=== PATIENT | female | born 1970 | race Caucasian/White ===

== ENCOUNTER 2018-05-19 00:17 | Emergency (ER) | payer MEDICAID ==
[~2018-05-19] VITALS: Ht 185.4 cm; Wt 88.6 kg
[2018-05-19] MEDS ORDERED: normal saline 1000ML IV soln IVB ONE (00:45)
[2018-05-19] MEDS ORDERED: ibuprofen tablet 400 MG TABLET PO ONE (00:45)
[2018-05-19] MEDS ORDERED: ondansetron/PF 4mg/2ml inj IV ONE (01:15)
[2018-05-19] MEDS ORDERED: ketorolac tromethamine 15mg/ml inj. IV ONE (01:15)
[2018-05-19 01:38] LABS: CLARITY,URINE BLOODY (Clear); COLOR,URINE RED (Yellow); UA COLLECTION TYPE CLN CATCH MIDSTREAM
[2018-05-19 01:43] LABS: URINE AMPHETAMINE SCREEN POSITIVE (Neg); URINE BARBITUATE SCREEN NEGATIVE (Neg); URINE BENZODIAZEPINES SCREEN NEGATIVE (Neg); URINE CANNABINOID SCREEN POSITIVE (Neg); URINE COCAINE SCREEN NEGATIVE (Neg); URINE METHADONE SCREEN NEGATIVE (Neg); URINE OPIATE SCREEN NEGATIVE (Neg); URINE PHENCYCLIDINE SCREEN NEGATIVE (Neg)
[2018-05-19 01:45] LABS: ALANINE AMINOTRANSFERASE 17 U/L (12-78); ALBUMIN 3.7 G/DL (3.4-5.0); ALBUMIN/GLOBULIN RATIO 0.9 (1.1-1.5); ALKALINE PHOSPHATASE 55 IU/L (46-116); ANION GAP 8 (8-16); ASPARTATE AMINO TRANSFERASE 29 U/L (10-37); BILIRUBIN,TOTAL 0.4 MG/DL (0.1-1.0); BLOOD UREA NITROGEN 19 MG/DL (7-18); BUN/CREATININE RATIO 12.9 (6.6-38.0); CALCIUM 8.8 MG/DL (8.5-10.1); CHLORIDE 102 MMOL/L (99-107); CREATININE 1.47 MG/DL (0.40-0.90); GLUCOSE 94 MG/DL (70-104); LIPASE 141 U/L (73-393); POTASSIUM 3.9 MMOL/L (3.5-5.1); SODIUM 138 MMOL/L (135-145); TOTAL PROTEIN 7.6 G/DL (6.4-8.2); eGFR 38 ML/MIN
[2018-05-19 02:15] LABS: BASOPHILS # (AUTO) 0.1 X10'3 (0-0.2); BASOPHILS % (AUTO) 0.9 % (0-1); EOSINOPHILS # (AUTO) 0.4 X10'3 (0-0.9); HEMATOCRIT 31.5 % (35.0-45.0); HEMOGLOBIN 10.2 g/dl (12.0-16.0); LYMPHOCYTES # (AUTO) 1.1 X10'3 (1.1-4.8); LYMPHOCYTES % (AUTO) 17.8 % (21-51); MEAN CORPUSCULAR HEMOGLOBIN 29.1 PG (27.0-31.0); MEAN CORPUSCULAR HGB CONC 32.4 % (33.0-36.5); MEAN CORPUSCULAR VOLUME 89.7 FL (78-98); MEAN PLATELET VOLUME 8.1 FL (7.4-10.4); MONOCYTES # (AUTO) 0.3 X10'3 (0-0.9); MONOCYTES % (AUTO) 4.8 % (2-12); NEUTROPHILS # (AUTO) 4.3 X10'3 (1.8-7.7); NEUTROPHILS % (AUTO) 69.5 % (42-75); PLATELET COUNT 276 X10'3 (140-440); RED BLOOD COUNT 3.51 X10'6 (4.20-5.60); RED CELL DISTRIBUTION WIDTH 16.3 % (11.5-14.5); WHITE BLOOD COUNT 6.3 X10'3 (4.5-11.0)
[2018-05-19 02:15] LABS: BACTERIA,URINE NONE SEEN /HPF (Neg); MUCUS STRANDS NONE SEEN /LPF (Neg); RBC,URINE TNTC /HPF (0-2); SQUAMOUS EPITHELIAL CELL,UR FEW /LPF (FEW); WBC,URINE 0-4 /HPF (0-4)
[2018-05-19] MEDS ORDERED: MEDR10TA PO (02:34)
[2018-05-19 02:50] VITALS: BP 130/104
== END 2018-05-19 02:51 | disposition home or self-care (01) ==
LOC: ER 00:18
DX: N93.9 Abnormal uterine and vaginal bleeding, unspecified (principal); N28.1 Cyst of kidney, acquired; D25.9 Leiomyoma of uterus, unspecified; F15.10 Other stimulant abuse, uncomplicated; F12.90 Cannabis use, unspecified, uncomplicated; J44.9 Chronic obstructive pulmonary disease, unspecified; I50.9 Heart failure, unspecified; Z90.49 Acquired absence of other specified parts of digestive tract; Z88.8 Allergy status to other drugs, medicaments and biological substances; Z79.899 Other long term (current) drug therapy; Z59.0 Homelessness
CPT/HCPCS: 36415; 74176; 80053; 80305; 81001; 83690; 85025; 96374; 96375; 99285; J1885; J2405; J7030

== ENCOUNTER 2018-06-14 11:53 | Outpatient (CLI) | payer MEDICAID ==
[~2018-06-14 11:53] MED LIST: MEDR10TA PO
== END 2018-06-14 23:59 | disposition home or self-care (01) ==
LOC: LAB 11:53
PROVIDERS: ATTEND Family Medicine
DX: M25.861 Other specified joint disorders, right knee (principal); M25.561 Pain in right knee
CPT/HCPCS: 73564

== ENCOUNTER 2018-06-15 16:34 | Emergency (ER) | payer MEDICAID ==
[~2018-06-15] VITALS: Ht 185.4 cm; Wt 88.6 kg
[2018-06-15 16:39] VITALS: BP 126/83
== END 2018-06-15 16:59 | disposition home or self-care (01) ==
LOC: ER 16:36
DX: Z02.89 Encounter for other administrative examinations (principal); M54.2 Cervicalgia; I95.9 Hypotension, unspecified; I50.9 Heart failure, unspecified; J44.9 Chronic obstructive pulmonary disease, unspecified; Z90.49 Acquired absence of other specified parts of digestive tract; Z98.51 Tubal ligation status; Z98.890 Other specified postprocedural states; F12.90 Cannabis use, unspecified, uncomplicated; F15.90 Other stimulant use, unspecified, uncomplicated; Z59.0 Homelessness; Z91.048 Other nonmedicinal substance allergy status; Z79.899 Other long term (current) drug therapy
CPT/HCPCS: 99283

== ENCOUNTER 2019-02-04 11:04 | Emergency (ER) | payer SELFPAY ==
[~2019-02-04] VITALS: Ht 185.4 cm; Wt 90.0 kg
[~2019-02-04 11:04] MED LIST changes: +IBUP-1986 PO
--- NOTE | 2019-02-04 12:11 | NUR ---
TICKET DISPATCHER WILL BE HERE SOON
[2019-02-04 13:22] VITALS: BP 131/66
[2019-02-04] MEDS ORDERED: CEPH250T PO (13:46)
[2019-02-04] MEDS ORDERED: LEVO150T8 PO (13:46)
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
== END 2019-02-04 14:39 | disposition home or self-care (01) ==
LOC: ER 11:04
DX: S80.212A Abrasion, left knee, initial encounter (principal); G89.29 Other chronic pain; M25.561 Pain in right knee; J44.9 Chronic obstructive pulmonary disease, unspecified; I50.9 Heart failure, unspecified; F12.90 Cannabis use, unspecified, uncomplicated; F15.90 Other stimulant use, unspecified, uncomplicated; Z59.0 Homelessness; Z90.49 Acquired absence of other specified parts of digestive tract; Z98.51 Tubal ligation status; Z98.890 Other specified postprocedural states; Z79.899 Other long term (current) drug therapy; Z79.82 Long term (current) use of aspirin; Y04.0XXA Assault by unarmed brawl or fight, initial encounter; Y93.89 Activity, other specified; Y92.89 Other specified places as the place of occurrence of the external cause; Y99.9 Unspecified external cause status
CPT/HCPCS: 29505; 73560; 93971; 99284

== ENCOUNTER 2019-02-13 21:00 | Emergency (ER) | payer MEDICAID, OTHER ==
[~2019-02-13] VITALS: Ht 185.4 cm; Wt 90.0 kg
[~2019-02-13 21:00] MED LIST changes: +CEPH250T PO; +LEVO150T8 PO
[2019-02-14] MEDS ORDERED: CYCL-1 PO (00:27)
[2019-02-14] MEDS ORDERED: cyclobenzaprine 10mg tablet PO ONE (00:30)
[2019-02-14] MEDS ORDERED: HYDROcodone/acetaminophen 5mg/325mg tablet PO ONE (00:30)
[2019-02-14 01:10] VITALS: BP 120/78
== END 2019-02-14 01:12 | disposition home or self-care (01) ==
LOC: ER 21:01
DX: M25.561 Pain in right knee (principal); J44.9 Chronic obstructive pulmonary disease, unspecified; G89.29 Other chronic pain; I50.9 Heart failure, unspecified; F12.90 Cannabis use, unspecified, uncomplicated; F15.90 Other stimulant use, unspecified, uncomplicated; Z88.8 Allergy status to other drugs, medicaments and biological substances; Z79.899 Other long term (current) drug therapy; Z59.0 Homelessness
CPT/HCPCS: 99284

== ENCOUNTER 2019-04-13 16:05 | Emergency (ER) | payer MEDICAID ==
[~2019-04-13] VITALS: Ht 185.4 cm; Wt 97.7 kg
[~2019-04-13 16:05] MED LIST changes: -CEPH250T PO; +FLUO20CA39 PO; +GABA-532 PO; -IBUP-1986 PO; -MEDR10TA PO; +RANI150C4 PO; +TRAM50TA2 PO
--- NOTE | 2019-04-13 17:30 | NUR ---
SPOKE WITH MD ABOUT PATIENTS RECENT DIAGNOSIS
[2019-04-13] MEDS ORDERED: ASPI-41 PO (17:39)
[2019-04-13] MEDS ORDERED: HYDR-4383 PO (17:39)
[2019-04-13] MEDS ORDERED: HYDROcodone/acetaminophen 10/325mg tab PO ONE (17:40)
[2019-04-13 17:51] VITALS: BP 125/55
== END 2019-04-13 17:53 | disposition home or self-care (01) ==
LOC: ER 16:06
DX: G43.909 Migraine, unspecified, not intractable, without status migrainosus (principal); G89.29 Other chronic pain; I50.9 Heart failure, unspecified; J44.9 Chronic obstructive pulmonary disease, unspecified; Z59.0 Homelessness; Z90.49 Acquired absence of other specified parts of digestive tract; Z98.51 Tubal ligation status; Z79.899 Other long term (current) drug therapy; Z79.82 Long term (current) use of aspirin
CPT/HCPCS: 99283

== ENCOUNTER 2019-05-18 21:01 | Emergency (ER) | payer MEDICAID ==
[~2019-05-18] VITALS: Ht 185.4 cm; Wt 93.0 kg
[~2019-05-18 21:01] MED LIST changes: +HYDR-4383 PO
[2019-05-18 21:43] LABS: BASOPHILS # (AUTO) 0.1 X10'3 (0-0.2); BASOPHILS % (AUTO) 0.9 % (0-1); EOSINOPHILS # (AUTO) 0.8 X10'3 (0-0.9); HEMOGLOBIN 13.3 g/dl (12.0-16.0); LYMPHOCYTES # (AUTO) 2.2 X10'3 (1.1-4.8); LYMPHOCYTES % (AUTO) 29.2 % (21-51); MEAN CORPUSCULAR HEMOGLOBIN 30.5 PG (27.0-31.0); MEAN CORPUSCULAR HGB CONC 32.5 g/dL (33.0-36.5); MEAN CORPUSCULAR VOLUME 93.9 FL (78-98); MONOCYTES # (AUTO) 0.4 X10'3 (0-0.9); MONOCYTES % (AUTO) 5.7 % (2-12); NEUTROPHILS % (AUTO) 53.2 % (42-75); PLATELET COUNT 252 X10'3 (140-440); RED BLOOD COUNT 4.36 X10'6 (4.20-5.60); RED CELL DISTRIBUTION WIDTH 15.2 % (11.5-14.5); WHITE BLOOD COUNT 7.6 X10'3 (4.5-11.0)
[2019-05-18 21:52] LABS: ALANINE AMINOTRANSFERASE 30 U/L (12-78); ALBUMIN 4.2 G/DL (3.4-5.0); ALBUMIN/GLOBULIN RATIO 1.1 (1.1-1.5); ALKALINE PHOSPHATASE 78 IU/L (46-116); ANION GAP 9 (8-16); ASPARTATE AMINO TRANSFERASE 36 U/L (10-37); BILIRUBIN,TOTAL 0.4 MG/DL (0.1-1.0); BLOOD UREA NITROGEN 16 MG/DL (7-18); BUN/CREATININE RATIO 10.5 (6.6-38.0); CALCIUM 9.5 MG/DL (8.5-10.1); CHLORIDE 106 MMOL/L (99-107); CREATININE 1.53 MG/DL (0.40-0.90); GLUCOSE 103 MG/DL (70-104); PARTIAL THROMBOPLASTIN TIME 30 SECONDS (22-32); SODIUM 142 MMOL/L (135-145); TOTAL CARBON DIOXIDE 26.7 MMOL/L (24-32); TOTAL PROTEIN 7.9 G/DL (6.4-8.2); eGFR 36 ML/MIN
[2019-05-18] MEDS ORDERED: ipratropium/albuterol 3ml nebule NEB ONE (22:00)
[2019-05-18] MEDS ORDERED: methylPREDNISolone sod succ 125mg/2ml vial IV ONE (22:00)
[2019-05-18] MEDS ORDERED: PRED20TA PO (23:05)
[2019-05-18] MEDS ORDERED: DOXY100C43 PO (23:05)
[2019-05-18 23:06] VITALS: BP 142/80
== END 2019-05-18 23:26 | disposition home or self-care (01) ==
LOC: ER 21:02
DX: J44.1 Chronic obstructive pulmonary disease with (acute) exacerbation (principal); J32.9 Chronic sinusitis, unspecified; G43.909 Migraine, unspecified, not intractable, without status migrainosus; I50.9 Heart failure, unspecified; G89.29 Other chronic pain; F32.9 Major depressive disorder, single episode, unspecified; F17.210 Nicotine dependence, cigarettes, uncomplicated; Z90.49 Acquired absence of other specified parts of digestive tract; Z98.51 Tubal ligation status; Z59.0 Homelessness; Z88.8 Allergy status to other drugs, medicaments and biological substances; Z79.899 Other long term (current) drug therapy
CPT/HCPCS: 36415; 71045; 80053; 83880; 84484; 85025; 85610; 85730; 93005; 94640; 94760; 96374; 99284; J2930

== ENCOUNTER 2019-09-24 09:31 | Emergency (ER) | payer MEDICAID ==
[~2019-09-24] VITALS: Ht 185.4 cm; Wt 140.9 kg
[2019-09-24 11:01] LABS: ALANINE AMINOTRANSFERASE 19 U/L (12-78); ALBUMIN 3.5 G/DL (3.4-5.0); ALBUMIN/GLOBULIN RATIO 0.9 (1.1-1.5); ALKALINE PHOSPHATASE 79 IU/L (46-116); ANION GAP 6 (8-16); ASPARTATE AMINO TRANSFERASE 22 U/L (10-37); BILIRUBIN,TOTAL 0.5 MG/DL (0.1-1.0); BLOOD UREA NITROGEN 9 MG/DL (7-18); BUN/CREATININE RATIO 8.3 (6.6-38.0); CALCIUM 9.2 MG/DL (8.5-10.1); CHLORIDE 103 MMOL/L (99-107); CREATININE 1.08 MG/DL (0.40-0.90); GLUCOSE 85 MG/DL (70-104); POTASSIUM 3.8 MMOL/L (3.5-5.1); SODIUM 137 MMOL/L (135-145); TOTAL CARBON DIOXIDE 28.5 MMOL/L (24-32); TOTAL PROTEIN 7.3 G/DL (6.4-8.2); eGFR 53 ML/MIN
[2019-09-24 12:54] VITALS: BP 148/93
== END 2019-09-24 12:56 | disposition home or self-care (01) ==
LOC: ER 09:32
DX: R20.0 Anesthesia of skin (principal); E11.42 Type 2 diabetes mellitus with diabetic polyneuropathy; G43.909 Migraine, unspecified, not intractable, without status migrainosus; I50.9 Heart failure, unspecified; J44.9 Chronic obstructive pulmonary disease, unspecified; G89.29 Other chronic pain; F32.9 Major depressive disorder, single episode, unspecified; F10.99 Alcohol use, unspecified with unspecified alcohol-induced disorder; Z90.49 Acquired absence of other specified parts of digestive tract; Z98.51 Tubal ligation status; Z88.8 Allergy status to other drugs, medicaments and biological substances; Z79.899 Other long term (current) drug therapy; Z98.890 Other specified postprocedural states; Z59.0 Homelessness; Y90.9 Presence of alcohol in blood, level not specified
CPT/HCPCS: 36415; 80053; 99283

== ENCOUNTER 2019-10-01 11:49 | Emergency (ER) | payer MEDICAID ==
[~2019-10-01] VITALS: Ht 185.4 cm; Wt 135.0 kg
[2019-10-01 11:52] VITALS: BP 132/85
[2019-10-01] MEDS ORDERED: ipratropium/albuterol 3ml nebule NEB ONE (12:30)
[2019-10-01] MEDS ORDERED: predniSONE 20 mg tablet PO ONE (12:30)
[2019-10-01] MEDS ORDERED: benzonatate 100mg capsule PO ONE (12:45)
--- NOTE | 2019-10-01 12:55 | NUR ---
Lab at bedside.
[2019-10-01 13:19] LABS: BASOPHILS # (AUTO) 0.1 X10'3 (0-0.2); BASOPHILS % (AUTO) 1.1 % (0-1); EOSINOPHILS # (AUTO) 0.8 X10'3 (0-0.9); EOSINOPHILS % (AUTO) 11.2 % (0-6); HEMATOCRIT 37.5 % (35.0-45.0); HEMOGLOBIN 12.5 g/dl (12.0-16.0); LYMPHOCYTES % (AUTO) 13.5 % (21-51); MEAN CORPUSCULAR HEMOGLOBIN 31.9 PG (27.0-31.0); MEAN CORPUSCULAR HGB CONC 33.4 g/dL (33.0-36.5); MEAN CORPUSCULAR VOLUME 95.6 FL (78-98); MONOCYTES # (AUTO) 0.5 X10'3 (0-0.9); MONOCYTES % (AUTO) 7.6 % (2-12); NEUTROPHILS # (AUTO) 4.7 X10'3 (1.8-7.7); NEUTROPHILS % (AUTO) 66.6 % (42-75); PLATELET COUNT 261 X10'3 (140-440); RED BLOOD COUNT 3.93 X10'6 (4.20-5.60); WHITE BLOOD COUNT 7.1 X10'3 (4.5-11.0)
--- NOTE | 2019-10-01 13:42 | NUR ---
Respiratory at bedside
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
--- NOTE | 2019-10-01 14:05 | NUR ---
Provider notified and and spoke with patient. CT ordered.
[2019-10-01] MEDS ORDERED: DOXY-327 PO (14:07)
[2019-10-01] MEDS ORDERED: BENZ-16 PO (14:07)
[2019-10-01] MEDS ORDERED: PRED20TA PO (14:08)
== END 2019-10-01 15:38 | disposition home or self-care (01) ==
LOC: ER 11:49
DX: J44.1 Chronic obstructive pulmonary disease with (acute) exacerbation (principal); J32.9 Chronic sinusitis, unspecified; G43.909 Migraine, unspecified, not intractable, without status migrainosus; G89.29 Other chronic pain; I50.9 Heart failure, unspecified; Z90.49 Acquired absence of other specified parts of digestive tract; Z98.51 Tubal ligation status; Z98.890 Other specified postprocedural states; Z59.0 Homelessness; Z79.899 Other long term (current) drug therapy
CPT/HCPCS: 36415; 70450; 71045; 85025; 87502; 87503; 94640; 99284; J7512; 94760

== ENCOUNTER 2019-10-05 17:22 | Emergency (ER) | payer MEDICAID, OTHER ==
[~2019-10-05] VITALS: Ht 185.4 cm; Wt 115.0 kg
[~2019-10-05 17:22] MED LIST changes: +BENZ-16 PO; +DOXY-327 PO; +PRED20TA PO
--- NOTE | 2019-10-05 18:31 | NUR ---
OFFICER ELIUD Helton, HERE SPEAKING WITH PT.
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
--- NOTE | 2019-10-05 18:48 | NUR ---
CHARGE NURSE NOTIFIED THAT OFFICER HAS REQUESTED
--- NOTE | 2019-10-05 19:29 | NUR ---
ADVOCATE FROM [facility] IS HERE TALKING WITH THE PATIENT.
[2019-10-05] MEDS ORDERED: metroNIDAZOLE 500mg tablet PO ONE (22:35)
[2019-10-05] MEDS ORDERED: CefTRIAXone 250MG IM Kit w/LIDOcaine IM ONE (22:35)
[2019-10-05] MEDS ORDERED: azithromycin 250mg tablet PO ONE (22:35)
[2019-10-06 00:11] LABS: URINE HCG NEGATIVE (NEG)
--- NOTE | 2019-10-06 00:15 | NUR ---
PHONED [facility] FOR TRANSPORTATION TO [facility] ON [address] . ETA FOR CAB IS [phone]
[2019-10-06 00:19] LABS: CLARITY,URINE CLOUDY (Clear); COLOR,URINE RED (Yellow); GLUCOSE, URINE NEGATIVE (Neg); KETONES,URINE NEGATIVE (Neg); LEUKOCYTE ESTERASE ,URINE NEGATIVE (Neg); NITRITES, URINE NEGATIVE (Neg); OCCULT BLOOD,URINE LARGE (Neg); PH,URINE 6.5 (4.8-8.0); PROTEIN,URINE TRACE mg/dl (Neg)
[2019-10-06 00:20] LABS: UA COLLECTION TYPE CLN CATCH MIDSTREAM
[2019-10-06 00:24] LABS: BACTERIA,URINE NONE SEEN /HPF (Neg); MUCUS STRANDS NONE SEEN /LPF (Neg); RBC,URINE TNTC /HPF (0-2); SQUAMOUS EPITHELIAL CELL,UR MANY /LPF (FEW); WBC,URINE NONE SEEN /HPF (0-4)
--- NOTE | 2019-10-06 02:42 | NUR ---
Patient seen for SART exam, patient accepted STD prevention but declined the morning after pill. Patient has one safe place advocate at the bedside " Destini". Patient verbalized understanding of follow up/ discharge instructions. [facility] and [facility] cab was called for patinet. Patient was offered food, given new shirts and underwear.
[2019-10-06 02:44] VITALS: BP 151/93
== END 2019-10-06 01:00 | disposition home or self-care (01) ==
LOC: ER 17:23
DX: N93.9 Abnormal uterine and vaginal bleeding, unspecified (principal); M54.5 Low back pain; G43.909 Migraine, unspecified, not intractable, without status migrainosus; J44.9 Chronic obstructive pulmonary disease, unspecified; G89.29 Other chronic pain; F32.9 Major depressive disorder, single episode, unspecified; I50.9 Heart failure, unspecified; F10.99 Alcohol use, unspecified with unspecified alcohol-induced disorder; Z90.49 Acquired absence of other specified parts of digestive tract; Z98.51 Tubal ligation status; Z88.8 Allergy status to other drugs, medicaments and biological substances; Z79.899 Other long term (current) drug therapy; Y90.9 Presence of alcohol in blood, level not specified
CPT/HCPCS: 81001; 81025; 96372; 99284

== ENCOUNTER 2019-11-07 09:17 | Emergency (ER) | payer MEDICAID ==
[~2019-11-07] VITALS: Ht 167.6 cm; Wt 110.0 kg
[~2019-11-07 09:17] MED LIST changes: -BENZ-16 PO; -PRED20TA PO
[2019-11-07] MEDS ORDERED: PERM60CR4 TOP (09:38)
[2019-11-07] MEDS ORDERED: FLUO20CA39 PO (09:38)
[2019-11-07] MEDS ORDERED: LEVO150T8 PO (09:38)
== END 2019-11-07 09:46 | disposition home or self-care (01) ==
LOC: ER 09:18
DX: B86 Scabies (principal); Z76.0 Encounter for issue of repeat prescription; L53.8 Other specified erythematous conditions; G43.909 Migraine, unspecified, not intractable, without status migrainosus; J44.9 Chronic obstructive pulmonary disease, unspecified; G89.29 Other chronic pain; I50.9 Heart failure, unspecified; Z98.890 Other specified postprocedural states; Z90.49 Acquired absence of other specified parts of digestive tract; Z98.51 Tubal ligation status; Z59.0 Homelessness; Z79.899 Other long term (current) drug therapy
CPT/HCPCS: 99283

== ENCOUNTER 2019-11-29 07:40 | Emergency (ER) | payer MEDICAID ==
[~2019-11-29] VITALS: Ht 185.4 cm; Wt 87.0 kg
[~2019-11-29 07:40] MED LIST changes: +PERM60CR4 TOP
[2019-11-29 09:44] VITALS: BP 127/68
== END 2019-11-29 09:48 | disposition home or self-care (01) ==
LOC: ER 07:41
DX: M25.561 Pain in right knee (principal); I50.9 Heart failure, unspecified; J44.9 Chronic obstructive pulmonary disease, unspecified; G89.29 Other chronic pain; F32.9 Major depressive disorder, single episode, unspecified; F12.90 Cannabis use, unspecified, uncomplicated; F17.210 Nicotine dependence, cigarettes, uncomplicated; Z90.49 Acquired absence of other specified parts of digestive tract; Z98.51 Tubal ligation status; Z98.890 Other specified postprocedural states; Z59.0 Homelessness; Z91.048 Other nonmedicinal substance allergy status; Z79.899 Other long term (current) drug therapy; Y04.2XXA Assault by strike against or bumped into by another person, initial encounter; X50.1XXA Overexertion from prolonged static or awkward postures, initial encounter; Y93.89 Activity, other specified; Y92.89 Other specified places as the place of occurrence of the external cause; Y99.8 Other external cause status
CPT/HCPCS: 73564; 99284

== ENCOUNTER 2019-12-15 07:32 | Emergency (ER) | payer MEDICAID ==
[~2019-12-15] VITALS: Ht 185.4 cm; Wt 90.0 kg
[2019-12-15] MEDS ORDERED: iohexol 350MG/ML 100ml bottle IV ONE (08:12)
[2019-12-15] MEDS ORDERED: diphenhydrAMINE 25mg capsule PO ONE (10:00)
[2019-12-15] MEDS ORDERED: ketorolac trometh inj. 60 MG/2 ML VIAL IM ONE (10:00)
[2019-12-15] MEDS ORDERED: proCHLORperazine 10mg tablet PO ONE (10:00)
[2019-12-15 10:34] VITALS: BP 124/83
== END 2019-12-15 10:36 | disposition home or self-care (01) ==
LOC: ER 07:33
DX: G43.909 Migraine, unspecified, not intractable, without status migrainosus (principal); M25.561 Pain in right knee; G89.29 Other chronic pain; I50.9 Heart failure, unspecified; J44.9 Chronic obstructive pulmonary disease, unspecified; F32.9 Major depressive disorder, single episode, unspecified; Z90.49 Acquired absence of other specified parts of digestive tract; Z98.51 Tubal ligation status; Z98.890 Other specified postprocedural states; Z88.8 Allergy status to other drugs, medicaments and biological substances; Z79.899 Other long term (current) drug therapy
CPT/HCPCS: 70496; 96372; 99284; J1885; Q0163; Q9967; Q0164

== ENCOUNTER 2020-01-11 20:19 | Emergency (ER) | payer MEDICAID ==
[~2020-01-11] VITALS: Ht 185.4 cm; Wt 127.4 kg
--- NOTE | 2020-01-11 20:33 | NUR ---
AWAITED FOR PATIENT TO BE PLACED IN SYSTEM TO DOCUMENT. ARRIVED VIA EMS. COOPERATIVE. WELL NOURISHED, COOPERATIVE CLOTHES DIRTY WEARING SOCKES WITH PLANT DEBRIS STUCK TO BOTTOM OF SOCKS. HANDS DARKENED FINGER NAILS WITH DIRT UNDER ALL 10 DIGITS CALLUSOUSES NOTED TO PALM OF HANDS. NOSE SWOLLEN DRIED BLOOD TO BOTH NOSTRILS, OD EYES WITH DRY BLOOD UNDERNEATH RIGHT CANTHUS. FACE CLEANED OF ALL DRIED BLOOD. AWAITING TO BE SEEN BY A PROVIDER
[2020-01-11] MEDS ORDERED: CLOP75TA35 PO (20:38)
--- NOTE | 2020-01-11 22:13 | NUR ---
TO CT SCAN
[2020-01-11] MEDS ORDERED: ondansetron 4mg rapidly disintigrating tab PO ONE (22:50)
[2020-01-11] MEDS ORDERED: HYDROcodone/acetaminophen 5mg/325mg tablet PO ONE (22:50)
[2020-01-11 23:54] VITALS: BP 110/56
== END 2020-01-11 23:55 | disposition home or self-care (01) ==
LOC: ER 20:19
DX: S06.0X0A Concussion without loss of consciousness, initial encounter (principal); S02.2XXA Fracture of nasal bones, initial encounter for closed fracture; S50.312A Abrasion of left elbow, initial encounter; R60.9 Edema, unspecified; I50.9 Heart failure, unspecified; J44.9 Chronic obstructive pulmonary disease, unspecified; G89.29 Other chronic pain; F32.9 Major depressive disorder, single episode, unspecified; F17.200 Nicotine dependence, unspecified, uncomplicated; F12.90 Cannabis use, unspecified, uncomplicated; Z87.820 Personal history of traumatic brain injury; Z90.49 Acquired absence of other specified parts of digestive tract; Z98.51 Tubal ligation status; Z98.890 Other specified postprocedural states; Z72.89 Other problems related to lifestyle; Z91.09 Other allergy status, other than to drugs and biological substances; Z79.01 Long term (current) use of anticoagulants; Z79.899 Other long term (current) drug therapy; Y04.0XXA Assault by unarmed brawl or fight, initial encounter; Y93.89 Activity, other specified; Y92.89 Other specified places as the place of occurrence of the external cause; Y99.8 Other external cause status
CPT/HCPCS: 70450; 70486; 73080; 99285